=== PATIENT | female | born 1990 | race Two or more races ===

== ENCOUNTER 2021-07-17 22:29 | Outpatient (CLI) | payer OTHER ==
[2021-07-17] MEDS ORDERED: PRENATAL TABLE1 EAC1 PO (23:20)
[2021-07-18] MEDS ORDERED: TERCONAZOLE20 GM VAG (10:43)
== END 2021-07-18 11:12 | disposition home or self-care (01) ==
LOC: OBS/DEL 22:29
PROVIDERS: ATTEND Specialist
DX: O98.812 Other maternal infectious and parasitic diseases complicating pregnancy, second trimester (principal); Z3A.23 23 weeks gestation of pregnancy

== ENCOUNTER 2021-10-29 14:00 | Inpatient (IN) | payer OTHER ==
[~2021-10-29] VITALS: Ht 157.5 cm; Wt 89.4 kg
[~2021-10-29 14:00] MED LIST: PRENATAL TABLE1 EAC1 PO; TERCONAZOLE20 GM VAG
== END 2021-11-18 13:36 | disposition home or self-care (01) | DRG 807 ==
LOC: LDR 11-10 14:00 → OB/GYN 11-16 13:40
PROVIDERS: ADMIT Specialist; ATTEND Specialist
PROC: 4A1HXCZ Monitoring of Products of Conception, Cardiac Rate, External Approach (ICD-10-PCS; 2021-11-15)
PROC: 10E0XZZ Delivery of Products of Conception, External Approach (ICD-10-PCS; principal; 2021-11-16)
PROC: 0UQG7ZZ Repair Vagina, Via Natural or Artificial Opening (ICD-10-PCS; 2021-11-16)
DX: O71.4 Obstetric high vaginal laceration alone (principal); Z37.0 Single live birth; O99.820 Streptococcus B carrier state complicating pregnancy; Z3A.40 40 weeks gestation of pregnancy; Z20.822 Contact with and (suspected) exposure to COVID-19